=== PATIENT | male | born 1980 | race Caucasian/White ===

== ENCOUNTER 2024-11-14 10:20 | Outpatient (CLI) | payer OTHER, SELFPAY ==
[2024-11-14 10:40] LABS: Basophils % 0.8 % (0.1-2.0); Eosinophils # 0.2 K/mm3 (0.0-0.4); Eosinophils % 3.4 % (0.1-12.0); Hematocrit 39.1 % (42.0-52.0); Hemoglobin 13.1 g/dL (14.1-18.0); Lymphocytes # 1.4 K/mm3 (0.7-4.5); Lymphocytes % 27.6 % (10-50); Mean Corpuscular HGB Conc 33.5 g/dL (31.8-35.4); Mean Corpuscular Hemoglobin 29.8 pg (27.0-31.2); Mean Corpuscular Volume 88.9 fl (80-94); Mean Platelet Volume 10.3 fl (7.4-10.4); Monocytes # 0.5 K/mm3 (0.1-1.0); Monocytes % 9.9 % (1.7-9.3); Neutrophils # 2.9 K/mm3 (1.8-7.8); Neutrophils % 58.1 % (37.0-80.0); Platelet Count 72 K/mm3 (142-424); Red Cell Distribution Width 13.5 % (11.5-17.5)
[2024-11-14 10:52] LABS: Ammonia 27 umol/L (9-30)
[2024-11-14 11:13] LABS: Activated Partial Thrombo Time 29.9 seconds (22.5-28.5); INR 1.17 (0.9-1.1); Prothrombin Time 12.7 seconds (9.2-12.1)
[2024-11-14 11:24] LABS: Alanine Aminotransferase 21 U/L (12-78); Albumin Level 3.3 g/dl (3.5-5.0); Albumin/Globulin Ratio 1.3 (1.1-1.8); Alkaline Phosphatase 129 U/L (38-126); Anion Gap 10.1 mEq/L (5-15); Aspartate Amino Transferase 36 U/L (17-59); Bilirubin,Total 1.7 mg/dl (0.2-1.3); Blood Urea Nitrogen 9 mg/dl (9-20); Calcium 8.7 mg/dl (8.4-10.2); Carbon Dioxide 30 mmol/L (22.0-30.0); Chloride 102 mmol/L (98-107); Cholesterol 144 mg/dl (140-200); Estimated Glomerular Filt Rate 105 ml/min (>60); GFR (African American) 126 ML/MIN (>60); Globulin 2.6 g/dL (1.3-3.2); Glucose 168 mg/dl (74-100); HDL Cholesterol 71 mg/dl (40-60); Potassium 4.1 mmoL/L (3.5-5.1); Sodium 138 mmol/L (136-145); Total Protein,Serum 5.9 g/dl (6.3-8.2); Triglycerides 69 mg/dl (30-150); VLDL Cholesterol 14 mg/dL (0-40)
[2024-11-14 11:36] LABS: Direct LDL Cholesterol 62.75 mg/dL (100-129)
[2024-11-14 11:41] LABS: Hemoglobin A1C 5.8 % (4.0-6.0)
[2024-11-14 11:43] LABS: 25-OH Vitamin D, Total 47.3 ng/mL (30-100)
[2024-11-14 11:58] LABS: Thyroid Stimulating Hormone 1.64 uIU/mL (0.465-4.68)
[2024-11-14 12:00] LABS: Hepatitis C Ab Qual. W/ RFX NEGATIVE (Negative)
[2024-11-14 13:17] LABS: HIV Combo NEGATIVE (Negative)
== END 2024-11-14 23:59 | disposition home or self-care (01) ==
PROVIDERS: PCP Family Medicine; Visit Provider Family Medicine
DX: F10.20 Alcohol dependence, uncomplicated (principal); Z11.59 Encounter for screening for other viral diseases; Z76.89 Persons encountering health services in other specified circumstances
CPT/HCPCS: 36415; 80053; 80061; 82140; 82306; 83036; 84443; 85025; 85610; 85730; 86803; 87389

== ENCOUNTER 2025-06-05 10:31 | Emergency (ER) | payer OTHER, SELFPAY ==
[2025-06-05] VITALS (8 sets, daily range): BP systolic 130–178; BP diastolic 75–91; PULSE 82–91; RESP 17–19; TEMP 37–37.1; O2SAT 93–100; BMI 37.3
--- OUTSIDE RECORDS SUMMARY | 2025-06-05 11:33 | XMS_ITS | Clinical Summary ---
Author Organization Healthcare Address [address] [place] [address] Care Team Providers Care Beauty Consultant Name Role Phone Piotr Billingsley GROCERY BAGGER Primary Care Provider [phone] Social History Tobacco Use Types Packs/Day Years Used Date Smoking Tobacco: Never Assessed Sex and Gender Information Value Date Recorded Sex Assigned at Not on file Legal Sex Male 8:39 PM EDT Gender Identity Not on file Sexual Orientation Not on file Last Filed Vital Signs Vital Sign Reading Time Taken Comments Blood Pressure 132/68 07/08/2022 12:16 PM EDT Pulse 84 07/08/2022 12:16 PM EDT Temperature 36.2 C (97.2 F) 07/08/2022 12:16 PM EDT Respiratory Rate 18 07/08/2022 12:16 PM EDT Oxygen Saturation 96% 07/08/2022 12:16 PM EDT RA Inhaled Oxygen Concentration - - Weight - - Height - - Body Mass Index - - Plan of Treatment Not on file Care Teams Beauty Consultant Relationship Specialty Start Date End Date Piotr Billingsley APRN [address] [facility] [address] [place], [place] [id number] PCP - General 02/25/21
--- OUTSIDE RECORDS SUMMARY | 2025-06-05 11:33 | XMS_ITS | Clinical Summary ---
Author Organization [facility] Address [address] [facility] [address] [place] [address] Care Team Providers Care Dry Pan Charger Name Role Phone Jacque Del Rosario MD Primary Care Provider [phone] Social History Tobacco Use Types Packs/Day Years Used Date Smoking Tobacco: Never Assessed Sex and Gender Information Value Date Recorded Sex Assigned at Not on file Legal Sex Male 10:12 AM EDT Gender Identity Not on file Sexual Orientation Not on file Plan of Treatment Health Maintenance Due Date Last Done Comments CT Colonography 1979 Colonoscopy 1979 Colorectal Cancer Screening 1979 FIT-DNA (Cologuard) 1979 FIT 1979 FOBT 1979 HIV Screening 1979 Hepatitis C Screening 1979 Lipid Panel 1979 Sigmoidoscopy 1979 MMR Vaccines (1 of 1 - Stand wilver series) 1980 Hepatitis B Screening 1997 DTaP/Tdap/Td Vaccines (1 - Tdap) 1998 Hepatitis B Vaccines (1 of 3 - 19+ 3-dose series) 1998 COVID-19 Vaccine ( - 2023-2 5 season) 2024 Depression Risk Screening 10/15/2024 SDOH Screening 10/15/2024 Influenza Vaccine (#1) 2025 Zoster Vaccines (1 of 2) 2029 HIB Vaccines Aged Out No longer eligi ble based on patient's age to complete this topic HPV Vaccines Aged Out No longer eligi ble based on patient's age to complete this topic Hepatitis A Vaccines Aged Out No long er eligible based on patient's age to complete this topic IPV Vaccines Aged Out No longer eligi ble based on patient's age to complete this topic Meningococcal B Vaccine Aged Out No l onger eligible based on patient's age to complete this topic Meningococcal Vaccine Aged Out No ko christophe eligible based on patient's age to complete this topic Pneumococcal Vaccine Aged Out No long er eligible based on patient's age to complete this topic Rotavirus Vaccines Aged Out No longer eligible based on patient's age to complete this topic Insurance [employer] [facility] Care Teams Dry Pan Charger Relationship Specialty Start Date End Date Jacque Del Rosario MD [address] [place] [address] [phone] PCP - General Family Medicine 06/15/22
--- OUTSIDE RECORDS SUMMARY | 2025-06-05 11:33 | XMS_ITS | Clinical Summary ---
Author Organization [facility] [place] [address] Care Team Providers Care Business Administrator Name Role Phone Jacque Del Rosario MD Primary Care Provider [phone] Allergies No known active allergies Medications vitamin B-12 (CYANOCOBALAMIN ) 1000 MCG tablet Take 1,000 mcg by mouth daily. Active pantoprazole (PROTONIX) 40 MG tablet Take 40 mg by mouth daily. Active folic acid (FOLVITE) 1 MG tablet Take 1 tablet by mouth daily. 30 tablet 07/28/2022 1:28 PM EDT 2 Active OLANZapine (ZYPREXA) 15 MG tablet Take 0.5 tablets by mouth nightly. 15 tablet 07/28/2022 1:28 PM EDT 2 Active vitamin B-1 100 MG tablet Take 1 tablet by mouth daily. 30 tablet 07/28/2022 1:28 PM EDT 2 Active amitriptyline (ELAVIL) 25 MG tablet Take 1 tablet by mouth daily. 2 Active cetirizine (ZYRTEC) 10 MG tablet Take 1 tablet by mouth daily. 2 Active omeprazole (PRILOSEC) 40 MG capsule Take 1 capsule by mouth daily. 2 Active nitroglycerin (NITROSTAT) 0.4 MG SL tablet DISSOLVE ONE (1) TABLET UNDER TONGUE EVERY FIVE (5) MINUTES UNTIL CHEST PAIN STOPS MAX OF THREE (3) DOSES IF NO RELIEF CALL 911/ DOCTOR. 2 Active metFORMIN (GLUCOPHAGE-XR) 500 MG Tablet Extended Release 24 Hour Take 1 tablet by mouth 2 (two) times daily. 2 Active lisinopril (PRINIVIL) 20 MG tablet Take 20 mg by mouth daily. Active amLODIPine (NORVASC) 5 mg tablet Take 5 mg by mouth daily. 07/28/20 Discontinu ed(Stop taking at discharge) escitalopram (LEXAPRO) 10 MG tablet Take 10 mg by mouth daily. 07/28/20 Discontinu ed(Stop taking at discharge) Lactulose 20 GM/30ML SOLN Take by mouth 3 (three) times daily. 07/28/20 Discontinu ed(Stop taking at discharge) magnesium Oxide (MAG-OX) 400 (240 Mg) MG tablet Take by mouth. 07/28/20 Discontinu ed(Stop taking at discharge) traZODone (DESYREL) 50 MG tablet Take 50 mg by mouth nightly. 07/28/20 Discontinu ed(Stop taking at discharge) Active Problems Problem Noted Date Diagnosed Date Alcohol use disorder, severe, dependence 022 Wernicke's encephalopathy 07/08/2022 Resolved Problems Problem Noted Date Diagnosed Date Resolved Date Followed by palliative care service 07/17/2022 07/21/2022 Social History Tobacco Use Types Packs/Day Years Used Date Smoking Tobacco: Unknown Smokeless Tobacco: Current Tobacco Cessation:Ready to Q uit: No; Counseling Given: No Alcohol Use Standard Drinks/Week Comments Yes 0 (1 standard drink = 0.6 oz pur e alcohol) Hunger Vital Sign Answer Date Recorded Within the past 12 months, y ou worried that your food would run out before you got the money to buy more. Patient declined Within the past 12 months, t he food you bought just didn't last and you didn't have money to get more. Patient declined PRAPARE - Transportation Answer Date Re corded In the past 12 months, has l ack of transportation kept you from medical appointments or from getting medications? Patient declined 08/01/2022 In the past 12 months, has l ack of transportation kept you from meetings, work, or from getting things needed for daily living? Patient declined 08/01/2022 Housing Stability Vital Sign Answer Paul e Recorded In the last 12 months, was t here a time when you were not able to pay the mortgage or rent on time? Patient refused 08/01/20 Number of Places Lived in the Last Year Not on f ile 08/01/2022 In the last 12 months, was t here a time when you did not have a steady place to sleep or slept in a alf (including now)? Patient refused 08/01/2022 Sex and Gender Information Value Date Recorded Sex Assigned at Not on file Legal Sex Male 2:56 PM EDT Gender Identity Not on file Sexual Orientation Not on file Last Filed Vital Signs Vital Sign Reading Time Taken Comments Blood Pressure 123/71 07/28/2022 7:42 AM EDT Pulse 87 07/28/2022 7:42 AM EDT Temperature 36.9 C (98.4 F) 07/28/2022 7:42 AM EDT Respiratory Rate 18 07/28/2022 7:42 AM EDT Oxygen Saturation 100% 07/28/2022 7:42 AM EDT Inhaled Oxygen Concentration - - Weight 95.2 kg (209 lb 14.1 oz) 07/08/2022 5:45 PM EDT Height 177.8 cm (5' 10 ) 07/08/2022 5:45 PM EDT Body Mass Index 30.11 07/08/2022 5:45 PM EDT Plan of Treatment Health Maintenance Due Date Last Done Comments CT Colonography 1979 Colonoscopy 1979 Colorectal Cancer Screening 1979 FIT-DNA 1979 FIT 1979 FOBT 1979 Sigmoidoscopy 1979 Hepatitis B (HepB) Vaccine ( 1 of 3 - 19+ 3-dose series) 1998 Pneumococcal Vaccines 6-49 y o Risk (1 of 2 - PCV) 1998 Tdap/Td Vaccine >11 yo (1 - Tdap) 1998 Annual SDOH Screening 10/15/2024 Influenza Vaccine (#1) 2025 HPV Vaccine Aged Out No longer eligi ble based on patient's age to complete this topic Haemophilus Influenzae Type B (Hib) Vaccine Aged Out No longer eligible b ased on patient's age to complete this topic Hepatitis A (HepA) Vaccine Aged Out N o longer eligible based on patient's age to complete this topic Meningococcal ACWY Aged Out No longer eligible based on patient's age to complete this topic Polio (IPV) Aged Out No longer eligi ble based on patient's age to complete this topic Rotavirus (RV) Vaccine Aged Out No lo nger eligible based on patient's age to complete this topic Medical Devices Implanted Type Area Rate Supervisor Device Identifier Shelf Expiration Date Model / Serial / Lot Tube Feed Endo [id number] - [id number] Implanted:Qty: 1 on 07/14/2022 by Irvin Rader MD at [facility] [employer] 12/14/2026 30 [id number] / / [id number] Description:ENTERED PER RN Insurance [facility] Advance Directives Documents on File Type Date Recorded Patient Compensation Business Partner Expl anation Living Will 08/04/2022 5:36 PM Living Will 07/21/2022 12:56 PM Lisy diaz [email or web address] * DNR (Latest Code Status on File) Date Activated Date Inactivated Comments 07/18/2022 12:19 PM 07/28/2022 4:01 PM - Provide comfort measures * DNR Date Activated Date Inactivated Comments 07/09/2022 12:04 AM 07/18/2022 12:19 PM * Full Code Date Activated Date Inactivated Comments 07/08/2022 7:13 PM 07/09/2022 12:04 AM Care Teams Business Administrator Relationship Specialty Start Date End Date Jacque Del Rosario MD [address] [place], [place] [id number] PCP - General Family Medicine 07/10/22
--- NOTE | 2025-06-05 11:54 | HMH.EDGENADL ---
Discharge Plan Disposition Patient Disposition: Left Against Medical Advice Prescriptions Prescriptions: No Action omeprazole 40 mg capsule,delayed release(DR/EC) 40 mg PO DAILY sulfamethoxazole-trimethoprim [Bactrim DS] 800-160 mg tablet 1 tab PO BID 10 Days Qty: 20 0RF Referrals Follow up/Referrals: Otis Moreno MD [Primary Care Provider, Internal Medicine] - See instructions Clinical Impressions Clinical Impression: Abscess or cellulitis of chin Print Language Print Language: Sami Discharge ED Provider: Colby Rey General Adult HPI General Chief complaint: Extremity Injury, Lower Stated complaint: SOA, knot on R leg, poss blood clot-phys ref Time Seen by Provider: 06/05/25 11:54 Mode of Arrival: Ambulatory Source of Information: Patient Description of Symptoms (Recalled from ER Triage Doc. by RN): Patient presents to ED from home with c/o left leg swelling and pain, reports having a knot to his left upper in thigh, reports concerns for a blood clot. States he is unsure how long it has been swollen, reports sworsening of pain upon standing/walking. Notes hx of cirrhosis and daily ETOH intake. Also reports n/v/d x1 week. History of Present Illness HPI narrative: This patient is a 45-year-old male with past medical history of alcohol use disorder who presents to the emergency department with multiple complaints. He reports that he is aware of knot or swollen area on the inside of his left thigh, he has also developed a rash along the left leg. The patient reports that he drinks 30 beers per day, has been noticing swelling in the leg over the past 3 to 4 days, and only became aware of the rash on his left leg this morning. He describes the rash as painless and is not aware at what rate it is spreading. Related Data Home Medications ?Medication ?Instructions ?Recorded ?Confirmed omeprazole 40 mg capsule,delayed 40 mg PO DAILY 11/14/24 05/11/25 release Previous Rx's ?Medication ?Instructions ?Recorded sulfamethoxazole 800 1 tab PO BID 10 days #20 tabs 05/11/25 mg-trimethoprim 160 mg tablet (Bactrim DS) Allergies Allergy/AdvReac Type Severity Reaction Status Date / Time No Known Allergies Allergy Verified 05/11/25 10:11 [facility] Disclaimer: The information contained in this section may have been updated after the patient was seen, as this information can be updated by other users. Medical History Neck pain, chronic Chronic back pain Right thumb amputee Wernicke-Korsakoff syndrome (alcoholic) Allergies GERD (gastroesophageal reflux disease) Neuropathy Hypertension Insomnia Herniated disc Alcoholism with alcohol dependence Cirrhosis of liver Surgical History Partial nontraumatic amputation of foot Social History (Updated 05/11/25 @ 10:22 by Lashonda Ferrer) Smoking Status: Current some day smoker tobacco type: cigarettes packs per day: 1 and smokeless tobacco second hand exposure: Yes alcohol intake: current alcohol intake frequency: 3 or more drinks per day current occupational status: unemployed Travel in the last 8 weeks?: None Have you lived/traveled outside US in past 30 days?: No Contact w/someone who lives/traveled outside US past 30 days?: No Exposure to someone with infectious disease in past 14 days?: No Do you have a fever (greater than 100.4 F or 38 C)?: No Have you tested positive for COVID-19?: No Exposed to someone with COVID-19 in past 14 days?: No Do you have a sore throat?: No Do you have a cough?: No Do you have any weakness?: No Do you have any diarrhea?: No Are you experiencing any unusual bleeding?: No Do you have any muscle aches/pain?: No Do you have any abdominal pain?: No Are you experiencing loss of taste or smell?: No ROS Obtained: Yes All systems reviewed & no additional complaints except as documented Physical Exam General General appearance: alert and in no apparent distress Head Head exam: atraumatic and normocephalic Eye Eye exam: Present normal appearance, PERRL and EOMI ENT ENT exam: Present normal exam and normal external ear exam Neck Neck exam: Present normal inspection, full ROM and trachea midline Chest Chest inspection: Present normal inspection and symmetric chest wall rise; Absent tenderness Respiratory Respiratory exam: Absent respiratory distress Cardiovascular Cardiovascular exam: Present regular rate, normal rhythm and other (appears warm and well perfused) Abdominal Exam Abdominal exam: Absent distention or tenderness Comment: Mildly distended nontender abdomen, mild bruising in right lower quadrant exam: Absent deferred Extremities Exam Extremities exam: Present full ROM and other (Nonpalpable purpura along the left lower extremity, no significant swelling) Neurological Exam Neurological exam: Present alert and oriented X3 Psychiatric Psychiatric exam: Present normal affect Skin Skin exam: Present warm and dry Medical Decision Making Medical Records Medical records reviewed: Yes I reviewed the patient's medical records. Screening: Per USPSTF and CDC recommendations, given the prevalence of disease in our region, it is our hospital?s policy to screen for HIV and viral Hepatitis for all patients aged 18 and over and those with ongoing risk factors. Uriel Inquiry Pt receiving controlled substance: No Uriel was queried for this patient: No Vital Signs: 06/05/25 11:18 06/05/25 11:30 06/05/25 11:34 Temperature 98.6 F Temperature Source Tympanic Pulse Rate 85 83 Pulse Rate [Left] 91 H Respiratory Rate 19 Blood Pressure 140/76 140/76 Blood Pressure [Left Arm] 130/75 Blood Pressure Mean [Left Arm] 93 Blood Pressure Source [Left Arm] Automatic Cuff Blood Pressure Position [Left Arm] Sitting 02 Sat by Pulse Oximetry 97 97 93 L Oxygen Delivery Method Room Air 06/05/25 12:56 06/05/25 13:01 06/05/25 13:30 Temperature Temperature Source Pulse Rate 84 86 82 Pulse Rate [Left] Respiratory Rate Blood Pressure 178/90 H 177/91 H 171/86 H Blood Pressure [Left Arm] Blood Pressure Mean [Left Arm] Blood Pressure Source [Left Arm] Blood Pressure Position [Left Arm] 02 Sat by Pulse Oximetry 98 99 99 Oxygen Delivery Method 06/05/25 14:19 06/05/25 14:43 Temperature 98.8 F Temperature Source Pulse Rate 83 91 H Pulse Rate [Left] Respiratory Rate 17 19 Blood Pressure 134/79 Blood Pressure [Left Arm] Blood Pressure Mean [Left Arm] Blood Pressure Source [Left Arm] Blood Pressure Position [Left Arm] 02 Sat by Pulse Oximetry 100 Oxygen Delivery Method Room Air Room Air Lab Data Lab results reviewed: Yes I reviewed the patient's lab results. Lab Results 06/05/25 11:50: WBC 5.2, RBC 4.18 L, Hgb 12.9 L, Hct 37.8 L, MCV 90.4, MCH 30.9, MCHC 34.1, RDW 16.0, Plt Count 23 L*, MPV TNP, Neut % (Auto) 79.1, Lymph % (Auto) 6.6 L, [place] % (Auto) 13.3 H, Eos % (Auto) 0.2, Baso % (Auto) 0.2, Neut # (Auto) 4.1, Lymph # (Auto) 0.3 L, [place] # (Auto) 0.7, Eos # (Auto) 0.0, Baso # (Auto) 0.0, Total Counted 100, Neutrophils % (Manual) 86 H, Lymphocytes % (Manual) 6 L, Monocytes % (Manual) 8, Platelet Estimate Marked decrease, Polychromasia 1+, Daisy Cells 1+, PT 14.3 H, INR 1.31 H, Sodium 129 L, Potassium 3.7, Chloride 95 L, Carbon Dioxide 27, Anion Gap 10.7, BUN 10, Creatinine 0.60 L, Estimated Creat Clear 257, Estimated GFR 145, Est GFR ( Amer) 176, Glucose 159 H, Calcium 7.9 L, Total Bilirubin 4.8 H, AST 101 H, ALT 52, Alkaline Phosphatase 181 H, Total Creatine Kinase 42 L, Total Protein 6.6, Albumin 3.3 L, Globulin 3.3 H, Albumin/Globulin Ratio 1.0 L 06/05/25 12:01: Urine Color [place], Urine Appearance Clear, Urine pH 6.5, Ur Specific [place] 1.010, Urine Protein Negative, Urine Glucose (UA) Trace, Urine Ketones Trace, Urine Blood Trace-i, Urine Nitrate Negative, Urine Bilirubin 2+ A, Urine Urobilinogen >=8.0, Ur Leukocyte Esterase Negative, Urine RBC None, Urine WBC None, Ur Squamous Epith Cells Occasional, Urine Bacteria Trace 06/05/25 12:55: SARS-CoV-2 (PCR) Not detected, Influenza A Untype (PCR) Not detected, Influenza Type B (PCR) Not detected 06/05/25 11:50 06/05/25 11:50 Orders (Tests/Meds): ED MEDICATIONS Discontinued Medications Generic Name Dose Route Start Last Admin Trade Name Rejiq PRN Reason Stop Dose Admin Diazepam 5 mg 06/05/25 14:17 06/05/25 14:42 Diazepam 5mg Tablet PO 06/05/25 14:18 Not Given ONCE ONE ORDERS Category Date Time Status Foot XR left 2 views [XR foot LT 2V] Stat Exams 06/05/25 12:24 Completed Foot XR right 2 views [XR foot RT 2V] Stat Exams 06/05/25 12:24 Completed CBC w/Auto Diff [Complete Blood Count Auto Diff] Stat Lab 06/05/25 11:50 Completed CK [Creatine Kinase] Stat Lab 06/05/25 11:50 Completed CMP [Comprehensive Metabolic Panel] Stat Lab 06/05/25 11:50 Completed PT INR [Prothrombin Time INR] Stat Lab 06/05/25 11:50 Completed Rapid PCR Covid and Flu A/B Stat Lab 06/05/25 12:55 Completed UA [Urinalysis and Microscopic] Stat Lab 06/05/25 12:01 Completed CA venous doppler LE LT Stat Y 06/05/25 12:24 Completed Medical Decision Narrative: MDM In summary, this 45-year-old male presents to the emergency department today with rash, medial thigh swelling. Initial evaluation the patient he was hemodynamically stable and comfortable, with a nonblanching pinpoint rash along the left lower extremity. Differential diagnosis includes but is not limited to DIC, thrombocytopenia, liver failure, sepsis, cellulitis, septic emboli. Based on these concerns, I ordered a comprehensive laboratory and imaging workup. Patient received Zofran, morphine for treatment. Labs personally reviewed and interpreted demonstrate anemia, extreme thrombocytopenia, hyponatremia, mild OMAR, decreased albumin, increased urine bilirubin. Ultrasound of the left lower extremity shows no acute clot or occlusion. Bilateral lower extremity x-rays were performed to rule out osteomyelitis under overlying diabetic foot wounds. These images personally interpreted by me showed mild arthritis but no signs of osteomyelitis. After a long interview with the patient I felt it was most likely that the patient's extreme thrombocytopenia was due to worsening cirrhosis due to alcohol use disorder. I spoke with the patient and told him that I would like to admit him to the hospital for continued workup including liver ultrasound and, MELD scoring. While speaking with the patient I noticed that the red rash on his leg got significantly worse even during the brief time that he been in the emergency department. I explained to him that I was concerned that not only did he have signs of purpura due to thrombocytopenia but I was also concerned he had serious case of cellulitis on the left lower extremity. I informed him that neglecting treatment of his multiple medical conditions could lead to or serious health effects. The patient informed me that he understands the risk but that is essential for him to leave the hospital dog. He reports that he plans to return to the hospital later today or tomorrow. I told the patient that I was not comfortable discharging him at this time, and so he left via patient directed discharge. Critical Care Critical Care Time Critical Care Time: No
[2025-06-05 12:08] LABS: Microscopic, Urine URINE MICROSCOPIC (MICROSCOPIC)
[2025-06-05 12:11] LABS: Color,Urine ORANGE (Yellow); Glucose,Urine (UA) TRACE (Negative); Ketones,Urine TRACE (Negative); Leukocyte Esterase,Urine Negative (Negative); PH,Urine 6.5 (5.0-8.5); Protein,Urine Negative (Negative); Specific Gravity, Urine 1.010 (1.005-1.030); Urobilinogen,Urine >=8.0 EU/dl (0.2)
[2025-06-05 12:15] LABS: Bilirubin,Urine 2+ (Negative)
[2025-06-05 12:23] LABS: Bacteria,Urine Trace /lpf; Squamous Epithelial Cell,Urine Occasional #/hpf (0-5)
--- NOTE | 2025-06-05 12:24 | XR_ITS ---
PROCEDURE INFORMATION: Exam: XR Left Foot Exam date and time: 06/05/2025 12:36 PM Age: 45 years old Clinical indication: Pain; Foot; Bilateral; Additional info: Foot wound, eval for osteo TECHNIQUE: Imaging protocol: Radiologic exam of the left foot. Views: 1 or 2 views. COMPARISON: No relevant prior studies available. FINDINGS: Bones/joints: Transmetatarsal amputation. No signs of abnormal periosteal reaction. Soft tissues: No soft tissue air. IMPRESSION: Transmetatarsal amputation. No plain film radiographic signs of osteomyelitis.
--- NOTE | 2025-06-05 12:24 | XR_ITS ---
PROCEDURE INFORMATION: Exam: XR Right Foot Exam date and time: 06/05/2025 12:36 PM Age: 45 years old Clinical indication: Pain; Foot; Bilateral; Additional info: Foot wound, eval for osteo TECHNIQUE: Imaging protocol: Radiologic exam of the right foot. Views: 1 or 2 views. COMPARISON: No relevant prior studies available. FINDINGS: Bones/joints: Mild arthritic change involving the interphalangeal joints. No fracture or lytic lesion. Soft tissues: Normal. IMPRESSION: No acute findings.
--- NOTE | 2025-06-05 12:24 | CA_ITS ---
FINAL REPORT TECHNIQUE: Ultrasound images of the deep venous system were obtained from the left groin to the calf veins. 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 FINDINGS: The deep venous system is normally compressible. Normal flow is identified. IMPRESSION: No evidence of left lower extremity DVT. Reviewed, Interpreted and Dictated by Hector Yañez MD Transcribed by Jade Kingston Authenticated and [facility]
[2025-06-05 12:32] LABS: Albumin Level 3.3 g/dl (3.5-5.0); Chloride 95 mmol/L (98-107); Sodium 129 mmol/L (136-145)
[2025-06-05 12:33] LABS: Potassium 3.7 mmoL/L (3.5-5.1)
[2025-06-05 12:35] LABS: Alanine Aminotransferase 52 U/L (12-78); Albumin/Globulin Ratio 1.0 (1.1-1.8); Alkaline Phosphatase 181 U/L (38-126); Anion Gap 10.7 mEq/L (5-15); Aspartate Amino Transferase 101 U/L (17-59); Bilirubin,Total 4.8 mg/dl (0.2-1.3); Blood Urea Nitrogen 10 mg/dl (9-20); Carbon Dioxide 27 mmol/L (22.0-30.0); Creatine Kinase 42 U/L (55-170); Creatinine Clearance Estimated 257 mL/min (50-200); Creatinine,Serum 0.60 mg/dl (0.66-1.25); Estimated Glomerular Filt Rate 145 ml/min (>60); GFR (African American) 176 ML/MIN (>60); Globulin 3.3 g/dL (1.3-3.2); Total Protein,Serum 6.6 g/dl (6.3-8.2)
[2025-06-05 12:36] LABS: Calcium 7.9 mg/dl (8.4-10.2); Glucose 159 mg/dl (74-100)
--- NOTE | 2025-06-05 12:45 | PC.NURSE ---
Ultrasound at bedside.
[2025-06-05 12:46] LABS: Hematocrit 37.8 % (42.0-52.0); Hemoglobin 12.9 g/dL (14.1-18.0); Immature Granulocytes % 0.6 %; Mean Corpuscular HGB Conc 34.1 g/dL (31.8-35.4); Mean Corpuscular Hemoglobin 30.9 pg (27.0-31.2); Mean Corpuscular Volume 90.4 fl (80-94); Nucleated Red Blood Cells % 0 %; Red Blood Count 4.18 M/mm3 (4.60-6.20); Red Cell Distribution Width-SD 53.8 fL; White Blood Count 5.2 K/mm3 (4.8-10.8)
[2025-06-05 13:02] LABS: Coronavirus 19, PCR Not Detected (NotDetected); Influenza A, PCR Not Detected (NotDetected); Influenza B, PCR Not Detected (NotDetected)
[2025-06-05 13:10] LABS: Platelet Count 23 K/mm3 (142-424)
[2025-06-05 13:16] LABS: Total Cells Counted 100
[2025-06-05 13:17] LABS: Burr Cells 1+; Polychromasia 1+
--- NOTE | 2025-06-05 13:21 | PC.NURSE ---
Dr. Rey notified patient is requesting something for anxiety .
--- NOTE | 2025-06-05 14:26 | PC.NURSE ---
Patient requesting to go out to his car to get his phone and call family to see if he can set up some thing to be able to stay overnight. Dr. Rey at bedside. Patient advised his IV will have to be removed, states he doesn't care and to go ahead and remove it. Patient advised of risk, verbalizes understanding. IV removed, awaiting patient's arrival back to his room.
[2025-06-05 14:35] LABS: INR 1.31 (0.9-1.1); Prothrombin Time 14.3 seconds (10.1-12.5)
--- NOTE | 2025-06-05 14:36 | PC.NURSE ---
Patient states he has to leave to leave to take his keys to someone to care for his dog and he will come right back after. Patient advised he must leave AMA, advised of the risk of leaving, verbalizes understanding. AMA form signed and placed on chart. Dr. Rey aware. Patient ambulatory without distress upon departure.
== END 2025-06-05 14:44 | disposition left against medical advice (07) ==
PROVIDERS: Emergency Provider Student in an Organized Health Care Education/Training Program; PCP Family Medicine
DX: D69.6 Thrombocytopenia, unspecified (principal); M79.652 Pain in left thigh; K70.30 Alcoholic cirrhosis of liver without ascites; E87.1 Hypo-osmolality and hyponatremia
CPT/HCPCS: 73620; 80053; 81001; 82550; 85007; 85025; 85027; 85610; 87636; 93971; 99284

== ENCOUNTER 2025-06-05 21:22 | Emergency (ER) | payer OTHER, SELFPAY ==
[2025-06-05 21:42] VITALS: BP 132/66; PULSE 89; RESP 16; TEMP 36.8; O2SAT 98; BMI 37.3
--- OUTSIDE RECORDS SUMMARY | 2025-06-05 22:04 | XMS_ITS | Clinical Summary ---
Author Organization [facility] [place] [address] Care Team Providers Care Utility Operator Yarn Name Role Phone Jacque Del Rosario MD Primary Care Provider [phone] Allergies No known active allergies Medications vitamin [...] place to sleep or slept in a senior living (including now)? Patient refused 08/01/2022 Sex and [...] this topic Medical Devices Implanted Type Area Decorator Lighting Fixtures Device Identifier Shelf Expiration Date Model / Serial / Lot Tube Feed Endo [id number] - [id number] Implanted:Qty: 1 on 07/14/2022 by Irvin Rader MD at [facility] 12/14/2026 30 [id number] / / [id number] Description:ENTERED PER RN Insurance [facility] Advance Directives Documents on File Type Date Recorded Patient Maternal Child Nurse Expl anation Living Will 08/04/2022 5:36 PM [...] 7:13 PM 07/09/2022 12:04 AM Care Teams Utility Operator Yarn Relationship Specialty Start Date End Date Jacque Del Rosario MD [address] [place], [place] [id number] PCP - General Family Medicine 07/10/22
--- OUTSIDE RECORDS SUMMARY | 2025-06-05 22:04 | XMS_ITS | Clinical Summary ---
Author Organization Healthcare Address [address] [place] [address] Care Team Providers Care Die Cast Patternmaker Name Role Phone Piotr Billingsley LOCOMOTIVE FIRER/FIREMAN Primary Care Provider [phone] Social History Tobacco Use Types Packs/Day Years [...] of Treatment Not on file Care Teams Die Cast Patternmaker Relationship Specialty Start Date End Date Piotr Billingsley APRN [address] [facility] [address] [place], [place] [id number] PCP - General 02/25/21
--- OUTSIDE RECORDS SUMMARY | 2025-06-05 22:04 | XMS_ITS | Clinical Summary ---
Author Organization [facility] Address [address] [facility] [address] [place] [address] Care Team Providers Care Switchboard Wire Worker Helper Name Role Phone Jacque Del Rosario MD Primary Care Provider [phone] Social History Tobacco Use Types Packs/Day Years [...] age to complete this topic Insurance [facility] [facility] Care Teams Switchboard Wire Worker Helper Relationship Specialty Start Date End Date Jacque Del Rosario MD [address] [place] [address] [phone] PCP - General Family Medicine 06/15/22
--- NOTE | 2025-06-05 22:33 | PC.NURSE ---
Went into PT room to complete Alcohol assessment. PT stated he wanted to leave AMA. notified, Paper work signed. PT came to nurses station question on lab values.
[2025-06-05 22:37] VITALS: BP 00/00; PULSE 0; RESP 0; TEMP -17.7; TEMP 0; O2SAT 0
--- NOTE | 2025-06-06 01:23 | HMH.EDGENADL ---
Discharge Plan Disposition Patient Disposition: Left Against Medical Advice Condition: Good Prescriptions Prescriptions: New doxycycline hyclate 100 mg capsule 100 mg PO BID 10 Days Qty: 20 0RF No Action omeprazole 40 mg capsule,delayed release(DR/EC) 40 mg PO DAILY sulfamethoxazole-trimethoprim [Bactrim DS] 800-160 mg tablet 1 tab PO BID 10 Days Qty: 20 0RF Referrals Follow up/Referrals: Otis Moreno MD [Primary Care Provider, Internal Medicine] - See instructions Clinical Impressions Clinical Impression: Cellulitis, Decompensated cirrhosis Instructions Patient Instructions: DI for Skin Abscess Print Language Print Language: Citizen Of [place] Discharge ED Provider: Troy Lim General Adult HPI General Chief complaint: Skin/Abscess/Foreign Body Stated complaint: infection in left leg Time Seen by Provider: 06/05/25 22:00 Mode of Arrival: Ambulatory Description of Symptoms (Recalled from ER Triage Doc. by RN): patient present to the ED for Left lower leg infection. patient was here earlier to be admitted for it and left to take care of his dog. History of Present Illness HPI narrative: This is a 45-year-old male patient, with past medical history of alcohol use disorder and concomitant cirrhosis, who is presenting to the emergency department today for evaluation of left lower extremity cellulitis. The patient was seen here earlier in the emergency department and was recommended to be admitted to the hospital but stated that he had to leave in order to take care of his dog. He tells me that this cellulitic erythema has appeared on his left leg over the course of the last 3 days. It has worsened over that time. He presents today asking to be admitted to the hospital. Related Data Home Medications ?Medication ?Instructions ?Recorded ?Confirmed omeprazole 40 mg capsule,delayed 40 mg PO DAILY 11/14/24 05/11/25 release Previous Rx's ?Medication ?Instructions ?Recorded sulfamethoxazole 800 1 tab PO BID 10 days #20 tabs 05/11/25 mg-trimethoprim 160 mg tablet (Bactrim DS) doxycycline hyclate 100 mg capsule 100 mg PO BID 10 days #20 caps 06/05/25 Allergies Allergy/AdvReac Type Severity Reaction Status Date / Time No Known Allergies Allergy Verified 05/11/25 10:11 [facility] Disclaimer: The information contained in this section may have been updated after the patient was seen, as this information can be updated by other users. Medical History Neck pain, chronic Chronic back pain Right thumb amputee Wernicke-Korsakoff syndrome (alcoholic) Allergies GERD (gastroesophageal reflux disease) Neuropathy Hypertension Insomnia Herniated disc Alcoholism with alcohol dependence Cirrhosis of liver Surgical History Partial nontraumatic amputation of foot Social History (Updated 05/11/25 @ 10:22 by Lashonda Ferrer) Smoking Status: Current every day smoker tobacco type: cigarettes packs per day: 1 and smokeless tobacco second hand exposure: Yes alcohol intake: current alcohol intake frequency: 3 or more drinks per day current occupational status: unemployed Travel in the last 8 weeks?: None Have you lived/traveled outside [place] in past 30 days?: No Contact w/someone who lives/traveled outside US past 30 days?: No Exposure to someone with infectious disease in past 14 days?: No Do you have a fever (greater than 100.4 F or 38 C)?: No Have you tested positive for COVID-19?: No Exposed to someone with COVID-19 in past 14 days?: No Do you have a sore throat?: No Do you have a cough?: No Do you have any weakness?: No Do you have any diarrhea?: No Are you experiencing any unusual bleeding?: No Do you have any muscle aches/pain?: No Do you have any abdominal pain?: No Are you experiencing loss of taste or smell?: No ROS Obtained: Yes Systems reviewed as appropriate & no additional complaints except as documented Physical Exam General General appearance: other (See MDM) Respiratory Respiratory exam: Present other (See MDM) Cardiovascular Cardiovascular exam: Present other (See MDM) Neurological Exam Neurological exam: Present other (See MDM) Medical Decision Making Medical Records Medical records reviewed: Yes I reviewed the patient's medical records. Screening: Per USPSTF and CDC recommendations, given the prevalence of disease in our region, it is our hospital?s policy to screen for HIV and viral Hepatitis for all patients aged 18 and over and those with ongoing risk factors. Uriel Inquiry Pt receiving controlled substance: No Uriel was queried for this patient: No Vital Signs: 06/05/25 21:42 06/05/25 22:37 Temperature 98.2 F 0 F L Temperature Source Temporal Artery Scan Pulse Rate 0 L Pulse Rate [Right Radial] 89 Respiratory Rate 16 0 L Blood Pressure 00/00 L Blood Pressure [Right Arm] 132/66 Blood Pressure Mean [Right Arm] 88 Blood Pressure Source [Right Arm] Automatic Cuff Blood Pressure Position [Right Arm] Sitting 02 Sat by Pulse Oximetry 98 Oxygen Delivery Method Room Air Medical Decision Narrative: In summary, this is a 45-year-old male patient who is presenting to the emergency department today for evaluation of left lower extremity cellulitis requesting to be admitted to the hospital after leaving AGAINST MEDICAL ADVICE earlier today in order to take care of his dog. Comorbidities include past medical history of alcohol use disorder as well as cirrhosis. He is currently receiving care through [facility] for his liver failure. On physical examination of the patient his abdomen is soft nontender to palpation. He has a partial left foot amputation that is old. He has cellulitis of the foot as well as the left lower extremity. There is some swelling associated with this. Differential diagnosis included lower extremity cellulitis, DVT, deep space infection, among others I have reviewed the note from earlier today. The patient had a laboratory assessment that demonstrated anemia and profound thrombocytopenia with a decreased albumin. He also had a left lower extremity Doppler ultrasound showing no deep vein thrombosis. He also had bilateral lower extremity x-rays that did not show any lytic lesions that would be concerning for osteomyelitis. I had an interactive discussion with the internal medicine service who stated that they did not feel comfortable admitting the patient in our hospital given that he had underlying cirrhosis that appeared to be acutely decompensated based on his laboratory assessment and recommended transfer to an outside hospital. I informed the patient of this and he stated that he did not want to be transferred to another hospital. He states that he is established with podiatry as well as hematology at [facility] in [place] and he stated that he would rather be admitted there. We discussed transferring him to [facility], and he refused and said that he would handle it on his own. We discussed risks and benefits of leaving without receiving treatment here today. The patient was persistent that he wanted to leave AGAINST MEDICAL ADVICE. Therefore, we had the patient sign an AGAINST MEDICAL ADVICE form and I also sent doxycycline to the pharmacy in the event that he is unable to make it to another hospital. Critical Care Critical Care Time Critical Care Time: No
== END 2025-06-05 22:49 | disposition left against medical advice (07) ==
PROVIDERS: Emergency Provider Student in an Organized Health Care Education/Training Program; PCP Family Medicine
DX: L03.116 Cellulitis of left lower limb (principal); K70.30 Alcoholic cirrhosis of liver without ascites; D69.6 Thrombocytopenia, unspecified
CPT/HCPCS: 99282; 99283